=== PATIENT | female | born 1995 | race Two or more races ===

== ENCOUNTER → 2019-06-12 | Emergency (ER) | payer OTHER ==
[~2019-06-12] VITALS: Ht 160 cm; Wt 44.5 kg
[~2019-06-12] MED LIST: BENLYSTA400 MG; DELTASONE20 MG; PEPCID20 MG; PLAQUENIL DT; PROTONIX40 M1
== END | disposition left against medical advice (07) ==
LOC: ER 11:52
DX: E86.0 Dehydration (principal)

== ENCOUNTER 2021-08-04 09:50 | Inpatient (IN) | payer OTHER ==
[~2021-08-04] VITALS: Ht 160 cm; Wt 47.6 kg
[2021-08-04] MEDS ORDERED: PREDNISONA (09:57)
[2021-08-04] MEDS ORDERED: [UNRECOGNIZED DRUG - OTHER] (09:57)
[2021-08-04] MEDS ORDERED: PLAQUENIL (09:57)
[2021-08-06] MEDS ORDERED: RAYOS1 MG (11:33)
[2021-08-06] MEDS ORDERED: HYDROXYCHLOROQ200 MG (11:34)
[2021-08-06] MEDS ORDERED: TREXALL5 MG (11:35)
[2021-08-10] MEDS ORDERED: FLAGYL500MG PO (12:51)
[2021-08-10] MEDS ORDERED: INTESTINEX680 M1 PO (12:51)
[2021-08-10] MEDS ORDERED: HYDROXYCHLOROQ200 MG PO (12:51)
[2021-08-10] MEDS ORDERED: PREDNISONE20 MG PO (12:51)
[2021-08-10] MEDS ORDERED: ATENOLOL50 MG PO (12:51)
[2021-08-10] MEDS ORDERED: GABAPENTIN300 MG PO (12:51)
== END 2021-08-10 16:03 | disposition home or self-care (01) | DRG 392 ==
LOC: ER 09:50 → SURH 08-05 11:51 → SEC-K 08-05 11:51 → SURH 08-05 16:13
PROVIDERS: ADMIT Internal Medicine; ATTEND Internal Medicine
PROC: BW21ZZZ Computerized Tomography (CT Scan) of Abdomen and Pelvis (ICD-10-PCS; principal; 2021-08-05)
DX: K52.89 Other specified noninfective gastroenteritis and colitis (principal); M32.9 Systemic lupus erythematosus, unspecified; G61.89 Other inflammatory polyneuropathies; Z20.822 Contact with and (suspected) exposure to COVID-19; R10.9 Unspecified abdominal pain

== ENCOUNTER 2021-09-07 11:49 | Emergency (ER) | payer OTHER ==
[~2021-09-07] VITALS: Ht 160 cm; Wt 46.7 kg
[~2021-09-07 11:49] MED LIST changes: +ATENOLOL50 MG PO; +FLAGYL500MG PO; +GABAPENTIN300 MG PO; +HYDROXYCHLOROQ200 MG; +HYDROXYCHLOROQ200 MG PO; +INTESTINEX680 M1 PO; +PLAQUENIL; +PREDNISONA; +PREDNISONE20 MG PO; +RAYOS1 MG; +TREXALL5 MG; +[UNRECOGNIZED DRUG - OTHER]
[2021-09-07] MEDS ORDERED: ULTRAM50 MG PO ×2 (16:46→16:49)
== END 2021-09-07 17:20 ==
LOC: ER 11:49
DX: M32.9 Systemic lupus erythematosus, unspecified (principal); M13.80 Other specified arthritis, unspecified site; Y92.89 Other specified places as the place of occurrence of the external cause; X58.XXXA Exposure to other specified factors, initial encounter; S33.5XXA Sprain of ligaments of lumbar spine, initial encounter

== ENCOUNTER 2021-11-07 18:56 | Emergency (ER) | payer OTHER ==
[~2021-11-07] VITALS: Ht 160 cm; Wt 40.8 kg
[~2021-11-07 18:56] MED LIST changes: +ULTRAM50 MG PO
[2021-11-07] MEDS ORDERED: TYLENOL (19:23)
== END 2021-11-07 23:41 | disposition home or self-care (01) ==
LOC: ER 18:56
DX: B34.8 Other viral infections of unspecified site (principal)

== ENCOUNTER 2022-11-23 14:07 | Emergency (ER) | payer OTHER ==
[~2022-11-23] VITALS: Ht 160 cm; Wt 46.7 kg
[~2022-11-23 14:07] MED LIST changes: +TYLENOL
[2022-11-23] MEDS ORDERED: PLAQUENIL (14:57)
== END 2022-11-23 23:21 | disposition home or self-care (01) ==
LOC: ER 14:07
DX: K52.89 Other specified noninfective gastroenteritis and colitis (principal)

== ENCOUNTER 2023-06-01 11:14 | Emergency (ER) | payer OTHER ==
[~2023-06-01] VITALS: Ht 160 cm; Wt 45.4 kg
[2023-06-01] MEDS ORDERED: ORAPRED ODT15 MG PO (11:44)
[2023-06-01] MEDS ORDERED: TOPROL XL50 M1 PO (11:44)
[2023-06-01] MEDS ORDERED: METHOTREXA25 MG/1 M7 IM (11:45)
== END 2023-06-01 17:04 | disposition home or self-care (01) ==
LOC: ER 11:14
DX: K52.9 Noninfective gastroenteritis and colitis, unspecified (principal); R10.9 Unspecified abdominal pain; Z88.1 Allergy status to other antibiotic agents; Z88.6 Allergy status to analgesic agent; Z91.013 Allergy to seafood

== ENCOUNTER 2023-06-05 15:01 | Inpatient (IN) | payer OTHER ==
[~2023-06-05] VITALS: Ht 160 cm; Wt 45.4 kg
[~2023-06-05 15:01] MED LIST changes: +METHOTREXA25 MG/1 M7 IM; +ORAPRED ODT15 MG PO; +TOPROL XL50 M1 PO
--- NOTE | 2023-06-05 15:09 | NUR ---
SE RECIBE PTE ALERTA Y ORIENTADA X3. REFIERE DIARREAS X6 Y DOLOR ABDOMINAL EN EL APRIL DE HOY
--- NOTE | 2023-06-05 16:35 | NUR ---
PACIENTE EVALUADA POR DR. DAVIS QUIEN ORDENA TRATAMNIENTO. RN [place] ORIENTA PACIENTE SOBRE TRATAMIENTON QUIEN REFIERE ENTENDER. SE ROLANDA MUESTRAS DE LAB[facility]ATOR[facility] MEDIDAS ASEPTCAS, SE ADMINISTRAN MEDICAMENTOS TRINITY ORDEN MEDICA. SE MANTIENE PACIENTE EN ESPERA DE REALIZAR CT.
[2023-06-11] MEDS ORDERED: TOPROL XL50 M1 PO (10:37)
[2023-06-11] MEDS ORDERED: PREDNISONE20 MG PO (10:37)
[2023-06-11] MEDS ORDERED: HYDROXYCHLOROQ200 MG PO (10:37)
[2023-06-11] MEDS ORDERED: Neurin-Sl Tablet Sl SL (10:37)
[2023-06-11] MEDS ORDERED: FOLIC ACID1 MG PO (10:37)
[2023-06-11] MEDS ORDERED: FLUCONAZOLE200 MG PO (10:37)
== END 2023-06-11 12:44 | disposition home or self-care (01) | DRG 392 ==
LOC: ER 15:01 → SURH 23:26 → MEDJ 23:26
PROVIDERS: ADMIT Internal Medicine; ATTEND Internal Medicine
PROC: 8E0ZXY6 Isolation (ICD-10-PCS; principal; 2023-06-05)
PROC: BW21YZZ Computerized Tomography (CT Scan) of Abdomen and Pelvis using Other Contrast (ICD-10-PCS; 2023-06-05)
DX: A09 Infectious gastroenteritis and colitis, unspecified (principal); B37.49 Other urogenital candidiasis; E86.0 Dehydration; D64.89 Other specified anemias; M32.9 Systemic lupus erythematosus, unspecified; D72.818 Other decreased white blood cell count

== ENCOUNTER 2023-07-07 12:57 | Emergency (ER) | payer OTHER ==
[~2023-07-07] VITALS: Ht 160 cm; Wt 45.4 kg
[~2023-07-07 12:57] MED LIST changes: +FLUCONAZOLE200 MG PO; +FOLIC ACID1 MG PO; +Neurin-Sl Tablet Sl SL
[2023-07-07] MEDS ORDERED: NEURONTIN300 MG (13:09)
== END 2023-07-07 18:06 | disposition home or self-care (01) ==
LOC: ER 12:57
PROVIDERS: Nurse Practitioner Family
DX: J06.9 Acute upper respiratory infection, unspecified (principal); Z20.822 Contact with and (suspected) exposure to COVID-19; Z88.8 Allergy status to other drugs, medicaments and biological substances; Z88.6 Allergy status to analgesic agent; Z91.013 Allergy to seafood

== ENCOUNTER 2023-11-04 12:21 | Emergency (ER) | payer OTHER ==
[~2023-11-04] VITALS: Ht 160 cm; Wt 47.6 kg
[~2023-11-04 12:21] MED LIST changes: +NEURONTIN300 MG
[2023-11-04] MEDS ORDERED: RITUXAN10 MG/1 ML (13:24)
[2023-11-04] MEDS ORDERED: PROTONIX40 MG PO (13:24)
[2023-11-04 18:39] LABS: PH,URINE 6.5 (5.0-8.0); URINE APPEARANCE Clear; URINE BILIRRUBIN Negative (NEGATIVE); URINE BLOOD Large; URINE COLOR Yellow; URINE GLUCOSE Negative (NEGATIVE); URINE LEUKOCYTE Negative; URINE NITRATE Negative; URINE PROTEIN Negative (NEGATIVE); URINE UROBILINOGEN 0.2 E.U./dl
[2023-11-04 18:43] LABS: URINE BACTERIA 28.9 uL (0.0-1933); URINE EPITHELIAL CELLS 6.4 uL (0.0-38.8); URINE RBC 531.6 uL (0.0-20.8); URINE WBC 4.1 uL (0.0-23.2)
[2023-11-04 18:46] LABS: HEMATOCRIT 37.6 % (36.0-45.00); HEMOGLOBIN 12.5 g/dL (12.0-15.00); MEAN CELL VOLUME 83.2 fL (80.00-100.00); MEAN CORPUSCULAR HEMOGLOBIN 27.6 pg (27.00-32.0); MEAN CORPUSCULAR HGB CONC 33.2 g/dl (32.0-36.0); PLATELET COUNT 284 K/uL (150-450); RED BLOOD COUNT 4.52 M/uL (4.00-6.00); RED CELL DISTRIBUTION WIDTH 14.4 % (11.5-14.5)
[2023-11-04 19:00] LABS: ALBUMIN 4.3 gm/dL (3.4-5.0); BILIRUBIN TOTAL 0.29 mg/dL (0.3-1.2); CALCIUM 9.2 mg/dL (8.5-10.1); CREATININE SERUM 0.81 mg/dL (0.55-1.02); GFR 85.47; GLOBULINA 3.2 G/DL (2.4-3.5); POTASSIUM 3.75 mEq/L (3.5-5.1); TOTAL PROTEIN 7.5 gm/dL (6.4-8.2)
[2023-11-04] MEDS ORDERED: BACLOFEN5 MG PO (21:21)
[2023-11-04] MEDS ORDERED: TRAMADOL HCL50 MG PO (21:21)
== END 2023-11-04 21:33 | disposition home or self-care (01) ==
LOC: ER 12:22
PROVIDERS: General Practice
DX: S33.5XXA Sprain of ligaments of lumbar spine, initial encounter (principal); X58.XXXA Exposure to other specified factors, initial encounter; Y93.9 Activity, unspecified; Y92.9 Unspecified place or not applicable; Y99.9 Unspecified external cause status; M06.9 Rheumatoid arthritis, unspecified; L93.0 Discoid lupus erythematosus; I10 Essential (primary) hypertension; Z88.8 Allergy status to other drugs, medicaments and biological substances; Z88.6 Allergy status to analgesic agent; Z91.013 Allergy to seafood

== ENCOUNTER 2023-12-15 12:58 | Emergency (ER) | payer OTHER ==
[~2023-12-15] VITALS: Ht 160 cm; Wt 45.4 kg
[~2023-12-15 12:58] MED LIST changes: +BACLOFEN5 MG PO; +PROTONIX40 MG PO; +RITUXAN10 MG/1 ML; +TRAMADOL HCL50 MG PO
[2023-12-15] MEDS ORDERED: FAMOTIDINE/PF 20 MG in 0.9 % SODIUM CHLORIDE 8 ML IV PUSH STA (14:20)
[2023-12-15] MEDS ORDERED: 0.9 % SODIUM CHLORIDE 1,000 ML IV SCH (14:30)
[2023-12-15] MEDS ORDERED: METOCLOPRAMIDE HCL 10 MG in DEXTROSE 5 % IN WATER 50 ML IV ONE (14:30)
[2023-12-15] MEDS ORDERED: HYOSCYAMINE SULFATE 0.125 MG TAB.SUBL SL ONE (14:30)
[2023-12-15] MEDS ORDERED: METHYLPREDNISOLONE SOD SUCC 125 MG VIAL IV ONE (14:30)
[2023-12-15 15:25] LABS: HEMATOCRIT 39.7 % (36.0-45.00); HEMOGLOBIN 13.4 g/dL (12.0-15.00); MEAN CELL VOLUME 83.9 fL (80.00-100.00); MEAN CORPUSCULAR HEMOGLOBIN 28.4 pg (27.00-32.0); MEAN CORPUSCULAR HGB CONC 33.8 g/dl (32.0-36.0); PLATELET COUNT 280 K/uL (150-450); RED BLOOD COUNT 4.73 M/uL (4.00-6.00); RED CELL DISTRIBUTION WIDTH 13.8 % (11.5-14.5)
[2023-12-15 15:39] LABS: ALBUMIN 4.3 gm/dL (3.4-5.0); BILIRUBIN TOTAL 0.47 mg/dL (0.3-1.2); CREATININE SERUM 0.63 mg/dL (0.55-1.02); GFR 114.23; GLOBULINA 3.7 G/DL (2.4-3.5); POTASSIUM 3.89 mEq/L (3.5-5.1)
[2023-12-15] MEDS ORDERED: ONDANSETRON ODT8 MG PO (16:07)
[2023-12-15] MEDS ORDERED: PEPCID AC20 MG PO (16:07)
[2023-12-15] MEDS ORDERED: LEVSIN/SL0.125 MG SL (16:07)
== END 2023-12-15 16:11 | disposition home or self-care (01) ==
LOC: ER 12:58
PROVIDERS: General Practice
DX: K29.70 Gastritis, unspecified, without bleeding (principal); I10 Essential (primary) hypertension; Z88.8 Allergy status to other drugs, medicaments and biological substances; Z88.6 Allergy status to analgesic agent; Z91.013 Allergy to seafood; M32.9 Systemic lupus erythematosus, unspecified

== ENCOUNTER 2024-08-24 11:34 | Outpatient (CLI) | payer OTHER ==
[~2024-08-24 11:34] MED LIST changes: +LEVSIN/SL0.125 MG SL; +ONDANSETRON ODT8 MG PO; +PEPCID AC20 MG PO
== END 2024-08-24 11:40 | disposition home or self-care (01) ==
LOC: SONOGRAMA 11:34
DX: M06.4 Inflammatory polyarthropathy (principal)